=== PATIENT | female | born 1945 | race Caucasian/White ===

== ENCOUNTER 2024-01-19 17:22 | Emergency (ER) | payer MEDICARE | END 2024-01-19 18:13 | disposition home or self-care (01) | LOC: NAV ERS 17:22 | DX: S80.02XA Contusion of left knee, initial encounter (principal); S80.01XA Contusion of right knee, initial encounter; I10 Essential (primary) hypertension; E78.5 Hyperlipidemia, unspecified; Z79.899 Other long term (current) drug therapy; W22.8XXA Striking against or struck by other objects, initial encounter | CPT/HCPCS: 99283 ==